=== PATIENT | female | born 1985 | race Hispanic/Latino ===

== ENCOUNTER 2019-01-26 11:34 | Emergency (ER) | payer SELFPAY ==
[2019-01-26 13:05] LABS: Absolute Lymphocytes (CBC) 2.6 K/uL (0.7-4.9); Absolute Monocytes 0.3 K/uL (0.1-1.3); Absolute Neutrophil 3.2 K/uL (1.8-8.0); Basophils % 0.4 % (0-1.3); Eosinophils % 1.6 % (0-4.4); Lymphocytes % 41.6 % (15.3-44.8); MPV 9.4 fL (7.6-11.3); Monocytes % 4.2 % (3.3-12.3); RBC Red Blood Cell Count 4.63 M/uL (3.86-4.86)
[2019-01-26 13:16] LABS: ALT/SGPT 15 U/L (12-78); AST/SGOT 10 U/L (15-37); Albumin 3.7 g/dL (3.4-5.0); Alkaline Phosphatase 69 U/L (45-117); BUN Blood Urea Nitrogen 11 mg/dL (7-18); Bicarbonate 26 mmol/L (21-32); Bilirubin Direct < 0.1 mg/dL (0-0.2); Bilirubin Total 0.3 mg/dL (0.2-1.0); Glucose Level 167 mg/dL (74-106); Lipase 87 U/L (73-393); Potassium 3.9 mmol/L (3.5-5.1); Protein, Total 7.9 g/dL (6.4-8.2); Sodium Level 140 mmol/L (136-145)
[2019-01-26 13:41] LABS: Urine Bacteria <20 /HPF (<20); Urine Culture Reflex Order NOT NEEDED; Urine RBC <5 /HPF (NONE SEEN)
[2019-01-26] MEDS ORDERED: KETOROLAC 30 MG/ML INJ ONE (13:50)
--- NOTE | 2019-01-26 14:13 | RAD REPORT ---
EXAM DESCRIPTION: CT - Abdomen Pelvis W Contrast - 01/26/2019 1:25 pm CLINICAL HISTORY: Abdominal pain, fever COMPARISON: Bb TECHNIQUE: Biphasic, helical CT imaging of the abdomen and pelvis was performed following 100 ml non -ionic IV contrast. No oral contrast administered. All CT scans are performed using dose optimization technique as appropriate and may include automated exposure control or mA/KV adjustment according to patient size. FINDINGS: No suspicious findings in the lung bases. The liver, spleen, and pancreas show no suspicious findings. Liver attenuation is borderline fatty in filtrated. Gallbladder and biliary tree are also without suspicious finding. Symmetric renal function is seen with no hydronephrosis or suspicious renal mass. No pyelonephritis o r acute parenchymal process. Urinary bladder wall appears slightly thickened for the amount of disten tion. No surrounding edema. This is probably still normal range. Cystitis cannot be excluded if there are matching clinical or laboratory findings. No adrenal abnormality seen. Left ovary contains a 2.6 centimeter cyst. No suspicious characteristics. Slight right deviation of t he uterus present without suspicious finding. No right ovarian abnormality. No dilated bowel loops or bowel wall thickening. Appendix is normal. Moderate stool volume distends t he rectum and distal sigmoid colon. No free air, free fluid or inflammatory stranding. No hernia, ma ss or bulky lymphadenopathy. No suspicious bony findings. IMPRESSION: Slight thickening of the urinary bladder wall. This is a subtle finding but cystitis is not excluded. Correlation is needed with any clinical or laboratory findings. No appendicitis or other acute GI process seen. There is moderate stool volume distending the rectum and distal sigmoid colon.
--- NOTE | 2019-01-26 14:39 | ER ---
Nurse's Notes [facility] Name: Leonarda Mane Age: 33 yrs Sex: Female : 1985 Arrival Date: 01/26/2019 Time: 11:36 Bed 23 Private MD: Diagnosis: Unspecified abdominal pain;Constipation Presentation: 01/26 11:46 Presenting complaint: Upper abdominal pain and subjective fever since last night. hb Denies N/V/D. Transition of care: patient was not received from another setting of care. Onset of symptoms was January 25, 2019. Risk Assessment: Do you want to hurt yourself or someone else? Patient reports no desire to harm self or others. Care prior to arrival: None. 11:46 Method Of Arrival: Ambulatory hb 11:46 Acuity: PEYTON 3 hb 14:56 Initial Sepsis Screen: Does the patient meet any 2 criteria? No. Patient's initial tl3 sepsis screen is negative. Does the patient have a suspected source of infection? No. Patient's initial sepsis screen is negative. 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 - Social history:: Smoking status: Patient/guardian denies using tobacco. - Ebola Screening: : No symptoms or risks identified at this time. Screenin:47 Abuse screen: Denies threats or abuse. Denies injuries from another. Nutritional iw screening: No deficits noted. Tuberculosis screening: No symptoms or risk factors identified. 13:36 Fall Risk None identified. tl3 Assessment: 12:46 General: Appears in no apparent distress. Behavior is calm, cooperative. Pain: iw Complains of pain in right upper quadrant and left upper quadrant. GI: Bowel sounds present X 4 quads. Abd is soft X 4 quads. 13:35 Reassessment: Patient and/or family updated on plan of care and expected duration. Pain tl3 level reassessed. Patient is alert, oriented x 3, equal unlabored respirations, skin warm/dry/pink. pt able to provide urine sample, blankets offered, no other needs at this time. 14:35 Reassessment: Patient appears in no apparent distress at this time. No changes from tl3 previously documented assessment. Patient and/or family updated on plan of care and expected duration. Pain level reassessed. Patient is alert, oriented x 3, equal unlabored respirations, skin warm/dry/pink. pain is decreased, [place] at bedside discussing CT results. Vital Signs: 11:47 BP 133 / 94; Pulse 79; Resp 16; Temp 98.1; Pulse Ox 100% on R/A; Pain 8/10; hb 13:35 BP 120 / 77; Pulse 59; Resp 18; Pulse Ox 100% on R/A; tl3 13:43 Pain 8/10; tl3 14:35 BP 118 / 74; Pulse 57; Resp 18; Pulse Ox 100% ; tl3 ED Course: 11:36 Patient arrived in ED. rg4 11:47 Triage completed. hb 11:47 Arm band placed on. hb 12:17 [place] Walker, MUSIC MIXER is PHCP. pm1 12:17 Pee Langley MD is Attending Physician. pm1 12:18 Krystal Evans, DALE is Primary Nurse. iw 12:40 Initial lab(s) drawn, by me, sent to lab. Inserted saline lock: 22 gauge in left jp3 antecubital area, using aseptic technique. Blood collected. 12:42 Radiology exam delayed due to lab results not completed at this time. (BUN/Creatinine) sj test not completed at this time. 12:52 Bed in low position. Call light in reach. Side rails up X 1. jp3 12:53 Basic Metabolic Panel Sent. jp3 12:53 CBC with Diff Sent. jp3 12:54 Creatinine for Radiology Sent. jp3 12:54 Hepatic Function Sent. jp3 12:54 Lipase Sent. jp3 13:26 CT Abd/Pelvis - W/Contrast: IV contrast only In Process Unspecified. EDMS 13:36 Pulse ox on. NIBP on. tl3 13:36 No provider procedures requiring assistance completed. tl3 14:55 IV discontinued, intact, bleeding controlled, No redness/swelling at site. Pressure tl3 dressing applied. Administered Medications: 13:43 Drug: TORadol 30 mg Route: IVP; Infused Over: 1 mins; Site: left antecubital; tl3 14:36 Follow up: Response: Pain is decreased tl3 14:54 Drug: Pepcid 20 mg Route: IVP; Infused Over: 1 mins; Site: left antecubital; tl3 14:55 Follow up: Response: Medication administered at discharge. tl3 Outcome: 14:38 Discharge ordered by . pm1 14:55 Discharged to home ambulatory. tl3 14:55 Condition: stable 14:55 Discharge instructions given to patient, Instructed on discharge instructions, follow up and referral plans. medication usage, Demonstrated understanding of instructions, follow-up care, medications, Prescriptions given X 2. 14:56 Patient left the ED. tl3 Signatures: Dispatcher [employer] EDMS Fay Lin Irene, RN RN iw [place] Walker NP MUSIC MIXER pm1 Janey Lr RN RN Dorothy Joshua rg4 Emely Hodge RN RN tl3 Fernando Karimi jp3 Corrections: (The following items were deleted from the chart) 14:37 14:35 Pulse 57bpm; Resp 18bpm; Pulse Ox 100%; tl3 tl3
--- NOTE | 2019-01-26 14:39 | EDPHYS ---
Physician Documentation [facility] Name: Leonarda Mane Age: 33 yrs Sex: Female : 1985 Arrival Date: 01/26/2019 Time: 11:36 Bed 23 Private MD: ED Physician Pee Langley HPI: 01/26 13:17 This 33 yrs old Female presents to ER via Ambulatory with complaints of pm1 Abdominal Pain. 13:17 The patient presents with abdominal pain in the upper abdomen. Onset: The pm1 symptoms/episode began/occurred 2 day(s) ago. The symptoms do not radiate. Associated signs and symptoms: Pertinent negatives: nausea, vomiting, and diarrhea, chest pain, dysuria, fever, shortness of breath. The symptoms are described as crampy. Modifying factors: The symptoms are alleviated by nothing, the symptoms are aggravated by food. Severity of pain: in the emergency department the pain is unchanged. The patient has not experienced similar symptoms in the past. The patient has not recently seen a physician. 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 - Social history:: Smoking status: Patient/guardian denies using tobacco. - Ebola Screening: : No symptoms or risks identified at this time. ROS: 13:17 Constitutional: Negative for fever, chills, and weight loss, Eyes: Negative for injury, pm1 pain, redness, and discharge, ENT: Negative for injury, pain, and discharge, Neck: Negative for injury, pain, and swelling, Cardiovascular: Negative for chest pain, palpitations, and edema, Respiratory: Negative for shortness of breath, cough, wheezing, and pleuritic chest pain. 13:17 Back: Negative for injury and pain, : Negative for injury, bleeding, discharge, and swelling, MS/Extremity: Negative for injury and deformity, Skin: Negative for injury, rash, and discoloration, Neuro: Negative for headache, weakness, numbness, tingling, and seizure. 13:17 Abdomen/GI: Positive for abdominal pain, Negative for nausea, vomiting, and diarrhea. Exam: 13:17 Constitutional: This is a well developed, well nourished patient who is awake, alert, pm1 and in no acute distress. Head/Face: Normocephalic, atraumatic. Eyes: Pupils equal round and reactive to light, extra-ocular motions intact. Lids and lashes normal. Conjunctiva and sclera are non-icteric and not injected. Cornea within normal limits. Periorbital areas with no swelling, redness, or edema. ENT: Nares patent. No nasal discharge, no septal abnormalities noted. Tympanic membranes are normal and external auditory canals are clear. Oropharynx with no redness, swelling, or masses, exudates, or evidence of obstruction, uvula midline. Mucous membranes moist. Neck: Trachea midline, no thyromegaly or masses palpated, and no cervical lymphadenopathy. Supple, full range of motion without nuchal rigidity, or vertebral point tenderness. No Meningismus. Chest/axilla: Normal chest wall appearance and motion. Nontender with no deformity. No lesions are appreciated. Cardiovascular: Regular rate and rhythm with a normal S1 and S2. No gallops, murmurs, or rubs. Normal PMI, no JVD. No pulse deficits. Respiratory: Lungs have equal breath sounds bilaterally, clear to auscultation and percussion. No rales, rhonchi or wheezes noted. No increased work of breathing, no retractions or nasal flaring. 13:17 Back: No spinal tenderness. No costovertebral tenderness. Full range of motion. Skin: Warm, dry with normal turgor. Normal color with no rashes, no lesions, and no evidence of cellulitis. MS/ Extremity: Pulses equal, no cyanosis. Neurovascular intact. Full, normal range of motion. 13:17 Abdomen/GI: Inspection: abdomen appears normal, Bowel sounds: normal, Palpation: soft, mild abdominal tenderness, in the epigastric area, mass, is not appreciated, rebound tenderness, is not appreciated. 13:17 Neuro: Orientation: is normal, Motor: is normal, moves all fours. Vital Signs: 11:47 BP 133 / 94; Pulse 79; Resp 16; Temp 98.1; Pulse Ox 100% on R/A; Pain 8/10; hb 13:35 BP 120 / 77; Pulse 59; Resp 18; Pulse Ox 100% on R/A; tl3 13:43 Pain 8/10; tl3 14:35 BP 118 / 74; Pulse 57; Resp 18; Pulse Ox 100% ; tl3 MDM: 12:19 Patient medically screened. pm1 13:18 Data reviewed: vital signs. Data interpreted: Pulse oximetry: on room air is 100 %. pm1 Interpretation: normal. 14:34 Counseling: I had a detailed discussion with the patient and/or guardian regarding: the pm1 historical points, exam findings, and any diagnostic results supporting the discharge/admit diagnosis, lab results, radiology results, the need for outpatient follow up, to return to the emergency department if symptoms worsen or persist or if there are any questions or concerns that arise at home. 01/26 12:24 Order name: Basic Metabolic Panel; Complete Time: 13:17 pm1 01/26 12:24 Order name: CBC with Diff; Complete Time: 13:06 pm1 01/26 12:24 Order name: Creatinine for Radiology; Complete Time: 13:15 pm1 01/26 12:24 Order name: Hepatic Function; Complete Time: 13:17 pm1 01/26 12:24 Order name: Lipase; Complete Time: 13:17 pm1 01/26 12:24 Order name: Urine Microscopic Only; Complete Time: 14:33 pm1 01/26 12:24 Order name: IV Saline Lock; Complete Time: 12:54 pm1 01/26 12:24 Order name: Labs collected and sent; Complete Time: 12:54 pm1 01/26 12:24 Order name: Urine Dipstick-Ancillary (obtain specimen); Complete Time: 13:37 pm1 01/26 12:24 Order name: CT Abd/Pelvis - W/Contrast: IV contrast only; Complete Time: 14:33 pm1 01/26 13:15 Order name: Urine Dipstick--Ancillary (enter results) bd 01/26 13:15 Order name: Urine --Ancillary (enter results) 01/26 12:24 Order name: Urine Test (obtain specimen); Complete Time: 13:37 pm1 Administered Medications: 13:43 Drug: TORadol 30 mg Route: IVP; Infused Over: 1 mins; Site: left antecubital; tl3 14:36 Follow up: Response: Pain is decreased tl3 14:54 Drug: Pepcid 20 mg Route: IVP; Infused Over: 1 mins; Site: left antecubital; tl3 14:55 Follow up: Response: Medication administered at discharge. tl3 Disposition: 15:10 Co-signature as Attending Physician, Pee Langley MD I agree with the assessment and kdr plan of care. PA/DIRECTOR SMB SALES's history reviewed, patient interviewed, and examined. Disposition: 01/26/19 14:38 Discharged to Home. Impression: Unspecified abdominal pain, Constipation. - Condition is Stable. - Discharge Instructions: Abdominal Pain, Adult, Constipation, Adult. - Prescriptions for Pepcid 20 mg Oral Tablet - take 1 tablet by ORAL route every 12 hours for 10 days; 20 tablet. Miralax 17 gram/dose Oral - take 1 packet by ORAL route once daily As needed dilute powder in 8 ounces of water or juice; 7 packet. - Medication Reconciliation Form, Thank You Letter, Antibiotic Education, Prescription Opioid Use, Work release form form. - Follow up: Emergency Department; When: As needed; Reason: Worsening of condition. Follow up: Private Physician; When: 2 - 3 days; Reason: Recheck today's complaints, Continuance of care, Re-evaluation by your physician. - Problem is new. - Symptoms have improved. Signatures: Dispatcher [employer] EDMS Pee Langley MD MD [facility] [place] Walker NP DIRECTOR SMB SALES pm1 Janey Lr, RN RN Emely Hodge RN RN tl3 Corrections: (The following items were deleted from the chart) 14:56 14:38 01/26/2019 14:38 Discharged to Home. Impression: Unspecified abdominal pain; tl3 Constipation. Condition is Stable. Forms are Medication Reconciliation Form, Thank You Letter, Antibiotic Education, Prescription Opioid Use. Follow up: Emergency Department; When: As needed; Reason: Worsening of condition. Follow up: Private Physician; When: 2 - 3 days; Reason: Recheck today's complaints, Continuance of care, Re-evaluation by your physician. Problem is new. Symptoms have improved. pm1
[2019-01-26] MEDS ORDERED: FAMOTIDINE 20 MG/2 ML VIAL IV ONE (14:52)
[2019-01-26 21:13] LABS: Urine Blood NEGATIVE (NEG); Urine Glucose NEGATIVE (NEG); Urine Protein NEGATIVE (NEG); Urine pH 6.5 (5.0-7.0)
== END 2019-01-26 14:56 | disposition home or self-care (01) ==
LOC: ER 11:34
DX: K59.00 Constipation, unspecified (principal)
CPT/HCPCS: 36415; 74177; 80048; 80076; 81003; 81015; 81025; 83690; 85025; 96374; 96375; 99284; Q9967

== ENCOUNTER 2021-10-05 22:27 | Emergency (ER) | payer SELFPAY ==
[2021-10-05] MEDS ORDERED: MORPHINE 4 MG/ML SYR ONE (23:36)
[2021-10-05] MEDS ORDERED: ONDANSETRON 4 MG/2 ML VIAL ONE (23:37)
[2021-10-05] MEDS ORDERED: NA CHLORIDE 0.9% 1,000 ML ONE (23:37)
[2021-10-05] MEDS ORDERED: ASPIRIN 325 MG TAB ONE (23:37)
[2021-10-06 00:24] LABS: Absolute Lymphocytes (CBC) 3.8 K/uL (0.7-4.9); Basophils % 0.3 % (0-1.3); Hematocrit 36.2 % (36.0-45.0); Lymphocytes % 50.3 % (15.3-44.8); MPV 9.6 fL (7.6-11.3); Protime INR 1.06; RBC Red Blood Cell Count 4.13 M/uL (3.86-4.86)
[2021-10-06 00:52] LABS: ALT/SGPT 27 U/L (12-78); AST/SGOT 11 U/L (15-37); Albumin 3.4 g/dL (3.4-5.0); Alkaline Phosphatase 65 U/L (45-117); BUN Blood Urea Nitrogen 9 mg/dL (7-18); Bicarbonate 23 mmol/L (21-32); Bilirubin Direct < 0.1 mg/dL (0-0.2); Bilirubin Total 0.2 mg/dL (0.2-1.0); Glucose Level 188 mg/dL (74-106); Magnesium 1.8 mg/dL (1.8-2.4); NT PRO-BNP 51 pg/mL (<125); Potassium 3.3 mmol/L (3.5-5.1); Sodium Level 141 mmol/L (136-145); Troponin (Emerg Dept Use Only) < 0.02 ng/mL (0.0-0.045)
[2021-10-06 01:06] LABS: Blood Morphology Comment NOT SEEN (NOT SEEN); Platelet Estimate ADEQ
[2021-10-06] MEDS ORDERED: POTASSIUM 25 MEQ EFFERV TAB ONE (01:17)
--- NOTE | 2021-10-06 02:48 | ER ---
Nurse's Notes [facility] Name: Leonarda Mane Age: 36 yrs Sex: Female : 1985 Arrival Date: 10/05/2021 Time: 22:32 Bed 4 Private MD: Diagnosis: Chest pain, unspecified Presentation: 10/05 22:58 Chief complaint: Patient states: chest pain, shortness of breath, nausea and headache em that started 1 hour ago, also reports BGL of 257. Coronavirus screen: Vaccine status: Patient reports receiving the 2nd dose of the covid vaccine. Ebola Screen: Patient negative for fever greater than or equal to 101.5 degrees Fahrenheit, and additional compatible Ebola Virus Disease symptoms Patient denies exposure to infectious person. Patient denies travel to an Ebola-affected area in the 21 days before illness onset. No symptoms or risks identified at this time. Initial Sepsis Screen: Does the patient meet any 2 criteria? No. Patient's initial sepsis screen is negative. Does the patient have a suspected source of infection? No. Patient's initial sepsis screen is negative. Risk Assessment: Do you want to hurt yourself or someone else? Patient reports no desire to harm self or others. Onset of symptoms was October 05, 2021. 22:58 Method Of Arrival: Ambulatory em 22:58 Acuity: PEYTON 3 em Historical: - Allergies: 23:00 No Known Allergies; em - PMHx: 23:00 Hypertensive disorder; Diabetes mellitus; Hypercholesterolemia; em - PSHx: 23:00 section; em - Immunization history:: Client reports receiving the 2nd dose of the Covid vaccine. - Social history:: Smoking status: Patient denies any tobacco usage or history of. Patient/guardian denies using alcohol, street drugs, The patient lives with family. - Family history:: not pertinent. Vital Signs: 22:58 BP 157 / 117; Pulse 70; Resp 18; Temp 97.7; Pulse Ox 100% on R/A; Weight 72.57 kg; em Height 5 ft. 4 in. (162.56 cm); Pain 8/10; 22:58 Body Mass Index 27.46 (72.57 kg, 162.56 cm) em ED Course: 22:32 Patient arrived in ED. ja2 22:45 Steven Alejandre MD is Attending Physician. [facility] 22:52 Jason Aguero, RN is Primary Nurse. em 23:00 Triage completed. em 23:00 Arm band placed on. EKG completed in triage. Results shown to MD. em 23:14 XRAY Chest (1 view) In Process Unspecified. [facility] 10/06 01:13 Jason Aguero, RN is Primary Nurse. em Administered Medications: 10/05 23:41 Drug: Aspirin Chewable Tablet 324 mg Route: PO; mr2 23:41 Drug: NS 0.9% 1000 ml Route: IV; Rate: 1 bolus; Site: left antecubital; mr2 23:42 Drug: morphine 4 mg Route: IVP; Site: left antecubital; mr2 23:42 Drug: Zofran (Ondansetron) 4 mg Route: IVP; Site: left antecubital; mr2 10/06 01:25 Drug: Potassium Chloride Liquid 40 mEq Route: PO; mr2 Outcome: 02:47 Discharge ordered by . [facility] 03:29 Patient left the ED. em Signatures: Dispatcher [employer] [facility] Jason Aguero, RN RN Steven Alejandre MD MD ma2 Kallie Chahal Mike, RN RN mr2
--- NOTE | 2021-10-06 02:48 | EDPHYS ---
Physician Documentation [facility] Name: Leonarda Mane Age: 36 yrs Sex: Female : 1985 Arrival Date: 10/05/2021 Time: 22:32 Bed 4 Private MD: ED Physician Steven Alejandre HPI: 10/05 23:07 This 36 yrs old Female presents to ER via Ambulatory with complaints of Chest ma2 Pain, High Blood Sugar. 23:07 The patient or guardian reports chest pain that is located primarily in the substernal ma2 area. Associated signs and symptoms: Pertinent negatives: cough, headache, lower extremity pain, lightheadedness, shortness of breath, syncope. The chest pain is described as a heaviness. Severity of pain: At its worst the pain was mild in the emergency department the pain is unchanged. The patient has not experienced similar symptoms in the past. Historical: - Allergies: 23:00 No Known Allergies; em - PMHx: 23:00 Hypertensive disorder; Diabetes mellitus; Hypercholesterolemia; em - PSHx: 23:00 section; em - Immunization history:: Client reports receiving the 2nd dose of the Covid vaccine. - Social history:: Smoking status: Patient denies any tobacco usage or history of. Patient/guardian denies using alcohol, street drugs, The patient lives with family. - Family history:: not pertinent. ROS: 23:07 Constitutional: Negative for fever, chills, and weight loss, Eyes: Negative for injury, ma2 pain, redness, and discharge. 23:07 All other systems are negative. Exam: 23:07 Constitutional: This is a well developed, well nourished patient who is awake, alert, ma2 and in no acute distress. Head/Face: Normocephalic, atraumatic. Eyes: Pupils equal round and reactive to light, extra-ocular motions intact. Lids and lashes normal. Conjunctiva and sclera are non-icteric and not injected. Cornea within normal limits. Periorbital areas with no swelling, redness, or edema. ENT: Nares patent. No nasal discharge, no septal abnormalities noted. Tympanic membranes are normal and external auditory canals are clear. Oropharynx with no redness, swelling, or masses, exudates, or evidence of obstruction, uvula midline. Mucous membranes moist. Neck: Trachea midline, no thyromegaly or masses palpated, and no cervical lymphadenopathy. Supple, full range of motion without nuchal rigidity, or vertebral point tenderness. No Meningismus. Chest/axilla: Normal chest wall appearance and motion. Nontender with no deformity. No lesions are appreciated. Cardiovascular: Regular rate and rhythm with a normal S1 and S2. No gallops, murmurs, or rubs. Normal PMI, no JVD. No pulse deficits. Respiratory: Lungs have equal breath sounds bilaterally, clear to auscultation and percussion. No rales, rhonchi or wheezes noted. No increased work of breathing, no retractions or nasal flaring. Abdomen/GI: Soft, non-tender, with normal bowel sounds. No distension or tympany. No guarding or rebound. No evidence of tenderness throughout. Back: No spinal tenderness. No costovertebral tenderness. Full range of motion. Skin: Warm, dry with normal turgor. Normal color with no rashes, no lesions, and no evidence of cellulitis. MS/ Extremity: Pulses equal, no cyanosis. Neurovascular intact. Full, normal range of motion. Neuro: Awake and alert, GCS 15, oriented to person, place, time, and situation. Cranial nerves II-XII grossly intact. Motor strength 5/5 in all extremities. Sensory grossly intact. Cerebellar exam normal. Normal gait. Vital Signs: 22:58 BP 157 / 117; Pulse 70; Resp 18; Temp 97.7; Pulse Ox 100% on R/A; Weight 72.57 kg; em Height 5 ft. 4 in. (162.56 cm); Pain 8/10; 22:58 Body Mass Index 27.46 (72.57 kg, 162.56 cm) em MDM: 23:06 Patient medically screened. ma2 23:07 Differential diagnosis: abnormal EKG, anxiety, chest wall pain, gastroesophageal reflux ma2 disease (GERD), pancreatitis, stable angina. 10/06 01:52 HEART Score: History: Slightly Suspicious (0), ECG: Normal (0), Age: < or = 45 years ma2 (0), Risk Factors: No Risk Factors Known (0), Troponin: < or = 1 x Normal Limit (0), Total Score = 0. Data reviewed: vital signs, nurses notes, EMS record. Counseling: I had a detailed discussion with the patient and/or guardian regarding: the historical points, exam findings, and any diagnostic results supporting the discharge/admit diagnosis, the presence of at least one elevated blood pressure reading (>120/80) during this emergency department visit, the need for outpatient follow up. ED course: Chest pain reproducible on exam,. 10/05 22:45 Order name: Basic Metabolic Panel [facility] 10/05 22:45 Order name: CBC with Diff [facility] 10/05 22:45 Order name: LFT's [facility] 10/05 22:45 Order name: Magnesium; Complete Time: 01:11 [facility] 10/05 22:45 Order name: NT PRO-BNP; Complete Time: 01:11 [facility] 10/05 22:45 Order name: PT-INR; Complete Time: 00:37 [facility] 10/05 22:45 Order name: Troponin (emerg Dept Use Only); Complete Time: 01:11 [facility] 10/05 22:46 Order name: Basic Metabolic Panel; Complete Time: 01:11 [facility] 10/05 22:46 Order name: CBC with Automated Diff; Complete Time: 01:11 [facility] 10/05 22:46 Order name: Liver (Hepatic) Function; Complete Time: 01:11 [facility] 10/06 00:26 Order name: Manual Differential; Complete Time: 01:11 [facility] 10/06 01:06 Order name: Slides for Pathologist Review [facility] 10/06 01:12 Order name: Troponin (emerg Dept Use Only); Complete Time: 02:46 [facility] 10/06 02:23 Order name: Glucose, Ancillary Testing; Complete Time: 02:27 [facility] 10/05 22:45 Order name: XRAY Chest (1 view) [facility] 10/05 22:45 Order name: EKG; Complete Time: 22:46 [facility] 10/05 22:45 Order name: Cardiac monitoring [facility] 10/05 22:45 Order name: EKG - Nurse/Tech; Complete Time: 23:05 [facility] 10/05 22:45 Order name: IV Saline Lock [facility] 10/05 22:45 Order name: Labs collected and sent [facility] 10/05 22:45 Order name: O2 Per Protocol [facility] 10/05 22:45 Order name: O2 Sat Monitoring [facility] 10/06 02:24 Order name: Glucose, Ancillary Testing EDMS Administered Medications: 10/05 23:41 Drug: Aspirin Chewable Tablet 324 mg Route: PO; mr2 23:41 Drug: NS 0.9% 1000 ml Route: IV; Rate: 1 bolus; Site: left antecubital; mr2 23:42 Drug: morphine 4 mg Route: IVP; Site: left antecubital; mr2 23:42 Drug: Zofran (Ondansetron) 4 mg Route: IVP; Site: left antecubital; mr2 10/06 01:25 Drug: Potassium Chloride Liquid 40 mEq Route: PO; mr2 Disposition Summary: 10/06/21 02:47 Discharge Ordered Location: Home ma2 Condition: Stable ma2 Diagnosis - Chest pain, unspecified ma2 Followup: ma2 - With: Private Physician - When: Tomorrow - Reason: If symptoms return, Continuance of care Discharge Instructions: - Discharge Summary Sheet ma2 - Nonspecific Chest Pain, Adult ma2 Forms: - Medication Reconciliation Form ma2 - Thank You Letter ma2 - Antibiotic Education ma2 - Prescription Opioid Use ma2 Prescriptions: - Diclofenac Sodium 75 mg Oral Tablet Sustained Release - take 1 tablet by ORAL route 2 times per day; 30 tablet; Refills: 0, Product ma2 Selection Permitted Signatures: Dispatcher [employer] EDJason Tamez, RN RN Tahir Kellogg, MEDICAL PARASITOLOGIST-C MEDICAL PARASITOLOGIST-Cla1 Steven Alejandre MD MD ma2 Jefferson Chapman RN RN mr2
--- NOTE | 2021-10-06 07:25 | RAD REPORT ---
EXAM DESCRIPTION: RAD - Chest Single View - 10/05/2021 11:15 pm CLINICAL HISTORY: CHEST PAIN COMPARISON: No comparisons FINDINGS: Lines: None. Lungs: No evidence of edema or pneumonia. Pleural: No significant pleural effusions or pneumothorax. Cardiac: The heart size is within normal limits. Bones: No acute fractures. Other: IMPRESSION: No acute cardiopulmonary disease.
== END 2021-10-06 03:29 | disposition home or self-care (01) ==
LOC: ER 22:27
DX: R07.9 Chest pain, unspecified (principal); I10 Essential (primary) hypertension
CPT/HCPCS: 36415; 71045; 80048; 80076; 82947; 83735; 83880; 84484; 85025; 85610; 93005; 96374; 96375; 99283; J2405; J7030